=== PATIENT | female | born 1970 | race American Indian/Alaskan Native ===

== ENCOUNTER 2017-06-30 12:16 | Outpatient (CLI) | payer MEDICAID ==
--- NOTE | 2017-06-30 15:22 | Magnetic Resonance Report ---
MRI LEFT SHOULDER WITHOUT AND WITH CONTRAST: 06/30/17 CLINICAL: Left shoulder pain. History of left breast cancer. TECHNIQUE: Coronal T1, coronal T2, coronal proton density fat saturation, sagittal proton density fat saturation and axial gradient echo T* sequences plus sagittal, coronal and axial postcontrast T1 fat-sat sequences on a 1.5 [place]en magnet. Consent was obtained prior to the administration of contrast. FINDINGS: Type I acromion with moderate acromioclavicular joint arthritis and mild impingement of the supraspinatus tendon. Moderate enhancement of the acromioclavicular joint postcontrast. Mild tendinosis of the supraspinatus tendon but no tear. The rest of the rotator cuff is intact. Intact glenoid labrum and long head of the biceps tendon. No joint effusion. The muscles have normal signal. No muscle atrophy. Normal marrow signal with no bone lesion or fracture. IMPRESSION: 1. Acromioclavicular joint arthritis and mild impingement of the supraspinatus tendon. 2. Mild supraspinatus tendinosis. 3. No rotator cuff tear. 4. No evidence of metastasis.
== END 2017-06-30 12:17 | disposition home or self-care (01) ==
LOC: SPVIMAG 12:16
PROVIDERS: ATTEND Internal Medicine Hematology & Oncology
DX: M19.012 Primary osteoarthritis, left shoulder (principal); M75.92 Shoulder lesion, unspecified, left shoulder; M25.812 Other specified joint disorders, left shoulder
CPT/HCPCS: 73223; A9577